=== PATIENT | female | born 1945 | race Caucasian/White ===

== ENCOUNTER 2024-01-23 08:49 | Day surgery (SDC) | payer OTHER, MEDICARE ==
[2024-01-17 15:27] VITALS: BMI 28.5
[2024-01-23] MEDS ORDERED: LIDOCAINE HCL/PF 2% SDV 5ML VIAL ONE (10:53)
[2024-01-23] MEDS ORDERED: MIDAZOLAM HCL 2 MG/2 ML SINGLE DOSE VIAL ONE (10:54)
[2024-01-23] MEDS ORDERED: PROPOFOL 60 ML ONE (10:54)
[2024-01-23] MEDS ORDERED: TETRACAINE 0.5% OPHTH SOLN 2 ML BOTTLE ONE (11:46)
[2024-01-23] MEDS ORDERED: POVIDONE-IODINE 5% OPHTHALMIC PREP 30 ML SOLUTION ONE (11:46)
[2024-01-23] MEDS ORDERED: ceFAZolin SODIUM 1 GM VIAL ONE (11:46)
[2024-01-23] MEDS ORDERED: ERYTHROMYCIN 0.5% OPHTHALMIC OINTMENT 3.5 GM TUBE ONE (11:46)
[2024-01-23] MEDS ORDERED: LIDOCAINE 1%/EPI 1:100000 (20 ML MULTI DOSE VIAL) ONE (11:46)
[2024-01-23] MEDS ORDERED: ONDANSETRON 4 MG/2 ML VIAL IVPUSH PRN (13:13)
[2024-01-23] MEDS ORDERED: LACTATED RINGERS SOLUTION 1,000 ML IV SCH (13:15)
[2024-01-23 13:58] VITALS: RESP 18; TEMP 97.4
[2024-01-23 14:29] VITALS: BP 128/74; PULSE 60
== END 2024-01-23 14:25 | disposition home or self-care (01) ==
LOC: FASU 08:49
PROVIDERS: ATTEND Ophthalmology
PROC: 08SN0ZZ Reposition Right Upper Eyelid, Open Approach (ICD-10-PCS; principal; 2024-01-23 13:36)
DX: H02.401 Unspecified ptosis of right eyelid (principal)
CPT/HCPCS: 94760

== ENCOUNTER 2024-03-26 05:58 | Day surgery (SDC) | payer SELFPAY ==
[2024-03-22 10:50] VITALS: BMI 28.3
[2024-03-26] MEDS ORDERED: TETRACAINE 0.5% OPHTH SOLN 2 ML BOTTLE ONE (07:11)
[2024-03-26] MEDS ORDERED: ceFAZolin SODIUM 1 GM VIAL ONE ×2 (07:11→07:22)
[2024-03-26] MEDS ORDERED: ERYTHROMYCIN 0.5% OPHTHALMIC OINTMENT 3.5 GM TUBE ONE (07:11)
[2024-03-26] MEDS ORDERED: POVIDONE-IODINE 5% OPHTHALMIC PREP 30 ML SOLUTION ONE (07:11)
[2024-03-26] MEDS ORDERED: THROMBIN (BOVINE) 5,000 UNIT VIAL TP ONE (07:12)
[2024-03-26] MEDS ORDERED: BUPIVACAINE HCL/PF 0.5% (5MG/ML) 10 ML VIAL ONE (07:12)
[2024-03-26] MEDS ORDERED: LIDOCAINE 1%/EPI 1:100000 (20 ML MULTI DOSE VIAL) ONE (07:12)
[2024-03-26] MEDS ORDERED: DEXAMETHASONE SOD PHOSPHATE 4 MG/1 ML VIAL ONE (07:22)
[2024-03-26] MEDS ORDERED: ONDANSETRON 4 MG/2 ML VIAL ONE (07:22)
[2024-03-26] MEDS ORDERED: MIDAZOLAM HCL 2 MG/2 ML SINGLE DOSE VIAL ONE (07:23)
[2024-03-26] MEDS ORDERED: PROPOFOL 40 ML ONE (07:23)
[2024-03-26] MEDS ORDERED: oxyCODONE HCL 5 MG TABLET PO PRN (08:31)
[2024-03-26] MEDS ORDERED: LACTATED RINGERS SOLUTION 1,000 ML IV SCH (08:45)
[2024-03-26 09:28] VITALS: PULSE 60; RESP 16; TEMP 97.4
[2024-03-26 10:02] VITALS: BP 110/56
== END 2024-03-26 10:07 | disposition home or self-care (01) ==
LOC: FASU 05:58
PROVIDERS: ATTEND Ophthalmology
PROC: 08SP0ZZ Reposition Left Upper Eyelid, Open Approach (ICD-10-PCS; principal; 2024-03-26 07:55)
DX: H02.402 Unspecified ptosis of left eyelid (principal)
CPT/HCPCS: 94760